=== PATIENT | male | born 1970 | race Caucasian/White ===

== ENCOUNTER 2016-11-29 20:22 | Emergency (ER) | payer OTHER ==
[~2016-11-29] VITALS: Ht 175.3 cm; Wt 82.0 kg
[2016-11-29] MEDS ORDERED: SODIUM CHLORIDE 0.9% 1,000 ML IV ONE (20:33)
[2016-11-29] MEDS ORDERED: NITROGLYCERIN SINGLE TAB 0.4 MG SL ONE (20:46)
[2016-11-29] MEDS ORDERED: MORPHINE SULFATE 4 MG/ML, 1ML ONE ×2 (20:46→21:24)
[2016-11-29] MEDS ORDERED: ONDANSETRON 2MG/ML, 2ML ONE (20:46)
[2016-11-29] MEDS: MORPHINE SULFATE 4 MG/ML, 1ML IVPush PRN ×2 (20:50→21:56)
[2016-11-29] MEDS ORDERED: NITROGLYCERIN SINGLE TAB 0.4 MG SL PRN (21:00)
[2016-11-29] MEDS ORDERED: ONDANSETRON 2MG/ML, 2ML IVPush ONE (21:00)
[2016-11-29] MEDS ORDERED: SODIUM CHLORIDE FLUSH 10ML SYR IVF ONE (21:00)
[2016-11-29 21:01] LABS: HEMOGLOBIN 15.4 g/dL (13.7-18.0); WHITE BLOOD COUNT 6.4 x10^3/uL (3.4-10)
[2016-11-29 21:04] LABS: PATH.CAST-FLAG NOT PRESENT; SPERM-FLAG NOT PRESENT; SRC-FLAG NOT PRESENT; XTAL-FLAG NOT PRESENT; YLC-FLAG NOT PRESENT
[2016-11-29 21:08] LABS: ASPARTATE AMINO TRANSFERASE 28 U/L (15-37); BLOOD UREA NITROGEN 11 mg/dL (7-18)
[2016-11-29 21:15] LABS: IS PT STATUS REG ER OR PRE ER? YES
[2016-11-29] MEDS ORDERED: OMNIPAQUE 350 MG/ML, 100ML BOTTLE ONE (23:06)
[2016-11-30 00:18] LABS: IS PT STATUS REG ER OR PRE ER? YES
[2016-11-30 00:38] VITALS: BP 113/69
== END 2016-11-30 00:43 | disposition home or self-care (01) ==
LOC: ED 20:44
DX: R07.1 Chest pain on breathing (principal); I10 Essential (primary) hypertension; F17.200 Nicotine dependence, unspecified, uncomplicated; Z88.1 Allergy status to other antibiotic agents; Z88.6 Allergy status to analgesic agent; Z88.2 Allergy status to sulfonamides; Z88.0 Allergy status to penicillin
CPT/HCPCS: 36415; 71010; 71275; 74175; 80053; 81001; 83690; 84484; 85025; 93005; 96361; 96374; 96375; 96376; 99285; J2405; J7030; Q9967

== ENCOUNTER 2016-12-03 15:22 | Observation (INO) | payer OTHER ==
[~2016-12-03] VITALS: Ht 175.3 cm; Wt 80.7 kg
[2016-12-03] MEDS ORDERED: ONDANSETRON 2MG/ML, 2ML ONE (15:53)
[2016-12-03] MEDS ORDERED: ASPIRIN 81 MG TABLET CHEW ONE (15:53)
[2016-12-03] MEDS ORDERED: NITROGLYCERIN SINGLE TAB 0.4 MG SL ONE (15:53)
[2016-12-03 15:55] LABS: HEMOGLOBIN 16.7 g/dL (13.7-18.0); WHITE BLOOD COUNT 6.8 x10^3/uL (3.4-10)
[2016-12-03] MEDS ORDERED: KETOROLAC 30 MG/1 ML IV ONE (16:00)
[2016-12-03] MEDS ORDERED: ONDANSETRON 2MG/ML, 2ML IVPush ONE (16:00)
[2016-12-03] MEDS ORDERED: SODIUM CHLORIDE FLUSH 10ML SYR IVF ONE (16:00)
[2016-12-03] MEDS ORDERED: NITROGLYCERIN SINGLE TAB 0.4 MG SL PRN (16:00)
[2016-12-03] MEDS ORDERED: ASPIRIN 81 MG TABLET CHEW PO ONE (16:00)
[2016-12-03 16:07] LABS: ASPARTATE AMINO TRANSFERASE 29 U/L (15-37); BLOOD UREA NITROGEN 12 mg/dL (7-18)
[2016-12-03 16:12] LABS: IS PT STATUS REG ER OR PRE ER? YES
[2016-12-03] MEDS ORDERED: MORPHINE SULFATE 4 MG/ML, 1ML ONE ×2 (16:22→19:13)
[2016-12-03] MEDS ORDERED: MORPHINE SULFATE 4 MG/ML, 1ML IVPush ONE (16:30)
[2016-12-03] MEDS ORDERED: ACETAMINOPHEN 500 MG TABLET ONE (17:32)
[2016-12-03] MEDS ORDERED: ONDANSETRON ODT 4 MG PO PRN (19:00)
[2016-12-03] MEDS ORDERED: NITROGLYCERIN 0.4 MG BOTTLE (25 TABS) SL PRN (19:00)
[2016-12-03] MEDS ORDERED: DIPHENHYDRAMINE 25 MG CAPSULE PO PRN (19:00)
[2016-12-03] MEDS ORDERED: LABETALOL 5MG/ML, 20ML IVPush PRN (19:00)
[2016-12-03] MEDS ORDERED: HEPARIN 5,000 UNITS/ML, 1ML ONE (19:13)
[2016-12-03] MEDS: morphine SULFATE 10 MG/ML, 1ML IVPush PRN ×2 (19:25→23:37)
[2016-12-03] MEDS: HEPARIN 5,000 UNITS/ML, 1ML SQ SCH (19:26)
[2016-12-03 20:37] VITALS: BP 134/96
[2016-12-03 21:47] LABS: IS PT STATUS REG ER OR PRE ER? NO
[2016-12-03] MEDS ORDERED: LORazepam 1MG TABLET PO ONE (22:30)
[2016-12-04 01:09] VITALS: BP 122/87
[2016-12-04 02:01] VITALS: BP 154/99
[2016-12-04] MEDS ORDERED: NITROGLYCERIN 0.4 MG/SPRAY SL PRN (02:30)
[2016-12-04] MEDS ORDERED: NITROGLYCERIN 0.4 MG BOTTLE (25 TABS) SL PRN (02:30)
[2016-12-04] MEDS ORDERED: morphine SULFATE 10 MG/ML, 1ML IVPush ONE (02:30)
[2016-12-04] MEDS: HEPARIN 5,000 UNITS/ML, 1ML SQ SCH ×3 (03:12→18:48)
[2016-12-04 05:20] LABS: IS PT STATUS REG ER OR PRE ER? NO
[2016-12-04] MEDS: morphine SULFATE 10 MG/ML, 1ML IVPush PRN ×6 (05:29→22:37)
[2016-12-04 07:30] VITALS: BP 120/67
[2016-12-04] MEDS ORDERED: REGADENOSON 0.4 MG/5 ML SYRINGE ONE (13:00)
[2016-12-04 15:01] VITALS: BP 113/78
[2016-12-04 18:44] VITALS: BP 114/82
[2016-12-04 23:57] VITALS: BP 155/70
[2016-12-05 00:19] VITALS: BP 138/83
[2016-12-05 00:26] VITALS: BP 95/58
[2016-12-05] MEDS ORDERED: LORazepam 0.5MG TABLET PO PRN (01:00)
[2016-12-05] MEDS ORDERED: LORazepam 0.5MG TABLET PO ONE (01:00)
[2016-12-05 02:06] VITALS: BP 114/72
[2016-12-05] MEDS: HEPARIN 5,000 UNITS/ML, 1ML SQ SCH ×2 (02:07→09:33)
[2016-12-05] MEDS: morphine SULFATE 10 MG/ML, 1ML IVPush PRN ×5 (02:07→15:16)
[2016-12-05 06:59] VITALS: BP 109/72
[2016-12-05] MEDS ORDERED: ACETAMINOPHEN 325 MG TABLET ONE (11:34)
[2016-12-05] MEDS ORDERED: ACETAMINOPHEN 325 MG TABLET PO PRN (12:00)
[2016-12-05 14:13] VITALS: BP 119/81
[2016-12-05] MEDS ORDERED: LISI5TAB7 PO (16:10)
[2016-12-05] MEDS ORDERED: CARV3.1212 PO (16:10)
[2016-12-05] MEDS ORDERED: CARVEDILOL 3.125 MG TABLET PO SCH (18:00)
[2016-12-06] MEDS ORDERED: LISINOPRIL 5 MG TABLET PO SCH (09:00)
== END 2016-12-05 19:00 | disposition home or self-care (01) ==
LOC: MERGE 18:25 → ED 18:25 → EDIP 19:46 → 5SO 20:21
PROVIDERS: ADMIT Hospitalist; ATTEND Hospitalist
DX: R07.89 Other chest pain (principal); I73.9 Peripheral vascular disease, unspecified; F11.10 Opioid abuse, uncomplicated; F17.210 Nicotine dependence, cigarettes, uncomplicated; F41.1 Generalized anxiety disorder; F15.20 Other stimulant dependence, uncomplicated; I50.9 Heart failure, unspecified; I63.9 Cerebral infarction, unspecified; Z80.6 Family history of leukemia; Z86.73 Personal history of transient ischemic attack (TIA), and cerebral infarction without residual deficits
CPT/HCPCS: 36415; 70450; 71010; 78452; 80053; 80061; 83735; 84100; 84484; 85025; 93005; 93017; 93306; 96372; 96374; 96375; 96376; 99285; A9502; C9898; G0378; J1644; J2270; J2405; J2785

== ENCOUNTER 2016-12-10 20:40 | Emergency (ER) | payer OTHER ==
[~2016-12-10] VITALS: Ht 175.3 cm; Wt 82.0 kg
[~2016-12-10 20:40] MED LIST: CARV3.1212 PO; LISI5TAB7 PO
[2016-12-10] MEDS ORDERED: SODIUM CHLORIDE 0.9% 1,000ML IVBOLUS ONE (21:30)
[2016-12-10 21:36] LABS: HEMATOCRIT 47.6 % (39.2-51.8); HEMOGLOBIN 15.8 g/dL (13.7-18.0); WHITE BLOOD COUNT 5.7 x10^3/uL (3.4-10)
[2016-12-10] MEDS: MORPHINE SULFATE 4 MG/ML, 1ML IVPush PRN ×2 (21:38→22:08)
[2016-12-10 21:48] LABS: BLOOD UREA NITROGEN 16 mg/dL (7-18)
[2016-12-10 21:52] LABS: IS PT STATUS REG ER OR PRE ER? YES
[2016-12-10] MEDS ORDERED: MORPHINE SULFATE 4 MG/ML, 1ML ONE (22:00)
[2016-12-10 22:45] VITALS: BP 123/89
== END 2016-12-10 23:16 | disposition home or self-care (01) ==
LOC: ED 21:22
DX: R07.89 Other chest pain (principal); I10 Essential (primary) hypertension; F17.200 Nicotine dependence, unspecified, uncomplicated
CPT/HCPCS: 36415; 71010; 80048; 82040; 84484; 85025; 93005; 96361; 96374; 96376; 99285; J7030

== ENCOUNTER 2016-12-17 10:02 | Emergency (ER) | payer OTHER ==
[~2016-12-17] VITALS: Ht 175.3 cm; Wt 82.0 kg
[2016-12-17 10:09] VITALS: BP 133/93
[2016-12-17] MEDS ORDERED: ACET325T14 PO (10:14)
[2016-12-17] MEDS ORDERED: LORazepam 2 MG/ML, 1ML ONE (10:26)
[2016-12-17] MEDS ORDERED: LORazepam 2 MG/ML, 1ML IM ONE (10:30)
== END 2016-12-17 10:56 | disposition home or self-care (01) ==
LOC: ED 10:11
DX: R07.89 Other chest pain (principal); I10 Essential (primary) hypertension
CPT/HCPCS: 93005; 96372; 99283; J2060

== ENCOUNTER → 2017-02-25 | Outpatient (CLI) | payer OTHER ==
[~2017-02-25] MED LIST changes: +ACET325T14 PO
== END | disposition home or self-care (01) ==
LOC: CFH 09:36
PROVIDERS: ATTEND Internal Medicine Cardiovascular Disease
DX: I42.7 Cardiomyopathy due to drug and external agent (principal); Z87.09 Personal history of other diseases of the respiratory system; Z87.891 Personal history of nicotine dependence
CPT/HCPCS: 93306